=== PATIENT | female | born 1945 | race Caucasian/White ===

== ENCOUNTER 2023-12-21 13:25 | Emergency (ER) | payer OTHER ==
[~2023-12-21 13:25] MED LIST: CYCLOBENZAPRINE5 M3 PO; GABAPENTIN800 MG PO
[2023-12-21] MEDS ORDERED: CEPHALEXIN500 M1 PO (16:00)
[2023-12-21] MEDS ORDERED: CEPHALEXIN 500 MG CAP PO ONE (16:00)
[2023-12-21] MEDS ORDERED: Acetaminophen/Hydrocodone 5 MG/325 MG TABLET PO ONE (16:00)
== END 2023-12-21 16:11 | disposition home or self-care (01) ==
LOC: ED 13:25
DX: S01.81XA Laceration without foreign body of other part of head, initial encounter (principal); S01.21XA Laceration without foreign body of nose, initial encounter; S80.211A Abrasion, right knee, initial encounter; Z79.899 Other long term (current) drug therapy; Z98.890 Other specified postprocedural states; Z90.49 Acquired absence of other specified parts of digestive tract; W01.0XXA Fall on same level from slipping, tripping and stumbling without subsequent striking against object, initial encounter; Y93.89 Activity, other specified; Y92.481 Parking lot as the place of occurrence of the external cause; Y99.8 Other external cause status